=== PATIENT | female | born 1990 ===

== ENCOUNTER 2017-05-24 10:16 | Outpatient (RCR) | payer BC | END 2017-05-29 | disposition home or self-care (01) | LOC: WCC 10:16 | DX: S06.2X0S Diffuse traumatic brain injury without loss of consciousness, sequela (principal); X58.XXXS Exposure to other specified factors, sequela; F32.9 Major depressive disorder, single episode, unspecified; Z88.8 Allergy status to other drugs, medicaments and biological substances ==